=== PATIENT | female | born 1990 | race African-American/Black ===

== ENCOUNTER 2017-09-02 14:09 | Emergency (ER) | payer BC, OTHER ==
[~2017-09-02] VITALS: Ht 165.1 cm; Wt 136.5 kg
[~2017-09-02 14:09] MED LIST: HYDR50TA94 PO; LIND1LOT7 TOP; PRED20 PO; Z.0.NO CURRENT MEDS
[2017-09-02] MEDS ORDERED: IOHEXOL 350 MG/ML 10 ML VIAL (for RAD DIAG) IVCONTRAST ONE (14:10)
[2017-09-02 14:12] VITALS: BP 167/99; PULSE 99; RESP 18; TEMP 99.6; O2SAT 100
[2017-09-02] MEDS ORDERED: SODIUM CHLOR 0.9% 1000 ML INJ 1,000 ML IV SCH (14:58)
[2017-09-02] MEDS ORDERED: DICYCLOMINE HCL 10 MG CAP PO ONE (15:00)
[2017-09-02] MEDS ORDERED: ALUMINUM/MAGNESIUM/SIMETH 30 ML CUP PO ONE (15:00)
[2017-09-02] MEDS ORDERED: LIDOCAINE VISCOUS 2% SOLN 15 ML UDC PO ONE (15:00)
[2017-09-02] MEDS ORDERED: SODIUM CHLORIDE 0.9% FLUSH 10 ML FLUSH IV FLUSH PRN (15:00)
[2017-09-02] MEDS ORDERED: ONDANSETRON HCL 4 MG/2 ML VIAL IVP ONE (15:00)
[2017-09-02] MEDS ORDERED: MORPHINE SULFATE 4 MG/ML INJ IV PUSH ONE (15:00)
[2017-09-02 15:03] VITALS: O2SAT 99
[2017-09-02 15:38] LABS: AUTOMATED NEUTROPHIL # 8.6 TH/MM3 (1.8-7.7); BASOPHIL % 0.3 % (0.0-2.0); EOSINOPHIL # 0.2 TH/MM3 (0-0.4); EOSINOPHIL % 1.8 % (0.0-4.0); HEMATOCRIT 35.8 % (35.0-46.0); HEMOGLOBIN 12.2 GM/DL (11.6-15.3); LYMPH % 9.9 % (9.0-44.0); MEAN CORPUSCULAR HEMOGLOBIN 29.7 PG (27.0-34.0); MEAN CORPUSCULAR HGB CONC 34.2 % (32.0-36.0); MEAN PLATELET VOLUME 8.1 FL (7.0-11.0); MONO % 4.1 % (0.0-8.0); MONOCYTE # 0.4 TH/MM3 (0-0.9); NEUT % 83.9 % (16.0-70.0); PLATELET COUNT 303 TH/MM3 (150-450); RED BLOOD COUNT 4.12 MIL/MM3 (4.00-5.30); RED CELL DISTRIBUTION WIDTH 12.9 % (11.6-17.2); WHITE BLOOD COUNT 10.2 TH/MM3 (4.0-11.0)
[2017-09-02 15:48] LABS: BILIRUBIN, URINE NEG (NEG); BLOOD, URINE LARGE (NEG); GLUCOSE,URINE NEG (NEG); KETONE, URINE NEG (NEG); MUCUS URINE FEW /lpf (OCC); NITRITE,URINE NEG (NEG); PH, URINE 7.5 (5.0-8.5); SQUAMOUS EPITHELIAL CELL URINE 4 /hpf (0-5); URINE COLOR YELLOW (YELLW/STRAW); URINE LEUKOCYTE ESTERASE TRACE (NEG)
[2017-09-02 16:02] LABS: ALBUMIN 3.4 GM/DL (3.4-5.0); ALT (GPT) 20 U/L (10-53); AST (GOT) 10 U/L (15-37); BICARBONATE 26.5 MEQ/L (21.0-32.0); BLOOD UREA NITROGEN 10 MG/DL (7-18); CALCIUM 8.4 MG/DL (8.5-10.1); CHLORIDE 105 MEQ/L (98-107); CREATININE 0.74 MG/DL (0.50-1.00); GLOMERULAR FILTRATION RATE 112 ML/MIN (>89); GLUCOSE,RANDOM 100 MG/DL (74-106); LIPASE 118 U/L (73-393); SODIUM (NA) 138 MEQ/L (136-145)
[2017-09-02 16:04] LABS: ALKALINE PHOSPHATASE 71 U/L (45-117); TOTAL BILIRUBIN ADULT 0.7 MG/DL (0.2-1.0); TOTAL PROTEIN 7.7 GM/DL (6.4-8.2)
--- NOTE | 2017-09-02 16:08 | PD ---
HPI Chief Complaint: Abdominal Pain Time Seen by Provider: 14:50 Travel History International Travel<30 days: No Contact w/Intl Traveler<30days: No Traveled to known affect area: No History of Present Illness HPI 27 yo F c/o abdominal pain for 6 hours, gradual onset, primarily along the RUQ and RLQ which she states feels similar to pain she fell following section. No fever or vomiting. The pain is worse with range of motion of the legs and with changing position of the torso. No abnormal discharge or bleeding. PFSH Past Medical History Hypertension: Yes Immunizations Current: Yes ?: Not LMP: 09/02/16 Past Surgical History Surgical History: No Previous Surgery Social History Alcohol Use: Yes Tobacco Use: No Substance Use: No Allergies-Medications (Allergen,Severity, Reaction): Coded Allergies: No Known Allergies (Verified Allergy, Unknown, 09/02/17) Reported Meds & Prescriptions Reported Meds & Active Scripts Active Review of Systems Except as stated in HPI: all other systems reviewed are Neg General / Constitutional: No: Fever Gastrointestinal: Positive: Abdominal Pain Physical Exam Narrative GENERAL: Well-nourished well-developed 27-year-old female mild distress SKIN: Warm and dry. HEAD: Atraumatic. Normocephalic. EYES: Pupils equal and round. No scleral icterus. No injection or drainage. ENT: No nasal bleeding or discharge. Mucous membranes pink and moist. NECK: Trachea midline. No JVD. CARDIOVASCULAR: Regular rate and rhythm. RESPIRATORY: No accessory muscle use. Clear to auscultation. Breath sounds equal bilaterally. GASTROINTESTINAL: Diffuse TTP right abdomen. Soft. No rebound. MUSCULOSKELETAL: Extremities without clubbing, cyanosis, or edema. No obvious deformities. NEUROLOGICAL: Awake and alert. No obvious cranial nerve deficits. Motor grossly within normal limits. Five out of 5 muscle strength in the arms and legs. Normal speech. PSYCHIATRIC: Appropriate mood and affect; insight and judgment normal. Data Data Last Documented VS Vital Signs Date Time Temp Pulse Resp B/P (MAP) Pulse Ox O2 Delivery O2 Flow Rate FiO2 09/02/17 19:22 88 20 146/72 (96) 98 Room Air 09/02/17 14:12 99.6 Orders Orders Complete Blood Count With Diff (09/02/17 14:58) Comprehensive Metabolic Panel (09/02/17 14:58) Lipase (09/02/17 14:58) Lactic Acid (09/02/17 14:58) Urinalysis - C+S If Indicated (09/02/17 14:58) Ct Abd/Pel W Iv Contrast(Rout) (09/02/17 14:58) Iv Access Insert/Monitor (09/02/17 14:58) Ecg Monitoring (09/02/17 14:58) Oximetry (09/02/17 14:58) Morphine Inj (Morphine Inj) (09/02/17 15:00) Ondansetron Inj (Zofran Inj) (09/02/17 15:00) Sodium Chlor 0.9% 1000 Ml Inj (Ns 1000 M (09/02/17 14:58) Sodium Chloride 0.9% Flush (Ns Flush) (09/02/17 15:00) Dicyclomine (Bentyl) (09/02/17 15:00) Al-Mag Hy-Si 40-40-4 Mg/Ml Liq (Mag-Al P (09/02/17 15:00) Lidocaine 2% Viscous (Xylocaine 2% Visco (09/02/17 15:00) Ed Urine Pregnancytest Poc (09/02/17 14:58) Morphine Inj (Morphine Inj) (09/02/17 16:30) Iohexol 350 Inj (Omnipaque 350 Inj) (09/02/17 14:10) Potassium Chloride (Kcl) (09/02/17 19:15) Ed Discharge Order (09/02/17 19:07) Labs Laboratory Tests Test 09/02/17 15:15 White Blood Count 10.2 TH/MM3 Red Blood Count 4.12 MIL/MM3 Hemoglobin 12.2 GM/DL Hematocrit 35.8 % Mean Corpuscular Volume 87.0 FL Mean Corpuscular Hemoglobin 29.7 PG Mean Corpuscular Hemoglobin Concent 34.2 % Red Cell Distribution Width 12.9 % Platelet Count 303 TH/MM3 Mean Platelet Volume 8.1 FL Neutrophils (%) (Auto) 83.9 % Lymphocytes (%) (Auto) 9.9 % Monocytes (%) (Auto) 4.1 % Eosinophils (%) (Auto) 1.8 % Basophils (%) (Auto) 0.3 % Neutrophils # (Auto) 8.6 TH/MM3 Lymphocytes # (Auto) 1.0 TH/MM3 Monocytes # (Auto) 0.4 TH/MM3 Eosinophils # (Auto) 0.2 TH/MM3 Basophils # (Auto) 0.0 TH/MM3 CBC Comment DIFF FINAL Differential Comment Urine Color YELLOW Urine Turbidity CLEAR Urine pH 7.5 Urine Specific [place] 1.025 Urine Protein 30 mg/dL Urine Glucose (UA) NEG mg/dL Urine Ketones NEG mg/dL Urine Occult Blood LARGE Urine Nitrite NEG Urine Bilirubin NEG Urine Urobilinogen 2.0 MG/DL Urine Leukocyte Esterase TRACE Urine RBC /hpf Urine WBC 1 /hpf Urine Squamous Epithelial Cells 4 /hpf Urine Mucus FEW /lpf Microscopic Urinalysis Comment CULT NOT INDICATED Blood Urea Nitrogen 10 MG/DL Creatinine 0.74 MG/DL Random Glucose 100 MG/DL Total Protein 7.7 GM/DL Albumin 3.4 GM/DL Calcium Level 8.4 MG/DL Alkaline Phosphatase 71 U/L Aspartate Amino Transf (AST/SGOT) 10 U/L Alanine Aminotransferase (ALT/SGPT) 20 U/L Total Bilirubin 0.7 MG/DL Sodium Level 138 MEQ/L Potassium Level 3.4 MEQ/L Chloride Level 105 MEQ/L Carbon Dioxide Level 26.5 MEQ/L Anion Gap 7 MEQ/L Estimat Glomerular Filtration Rate 112 ML/MIN Lactic Acid Level 1.3 mmol/L Lipase 118 U/L [facility] Medical Decision Making Medical Screen Exam Complete: Yes Emergency Medical Condition: Yes Medical Record Reviewed: Yes Differential Diagnosis Gastritis, pancreatitis, appendicitis, acute cholecystitis, ascending cholangitis, AAA, perforated viscous, mesenteric ischemia, hepatitis, cystitis, hydronephrosis/hydroureter/nephroureter calculus, mesenteric adenitis, biliary colic Narrative Course CBC & BMP Diagram 09/02/17 15:15 Total Protein 7.7, Albumin 3.4, Calcium Level 8.4 L, Alkaline Phosphatase 71, Aspartate Amino Transf (AST/SGOT) 10 L, Alanine Aminotransferase (ALT/SGPT) 20, Total Bilirubin 0.7 Lipase 118 Lactic acid 1.3 Case d/w oncoming provider Follow up with CT for Gabriel Rehman MD Sep 02, 2017 16:08
[2017-09-02] MEDS ORDERED: MORPHINE SULFATE 2 MG/ML INJ IV PUSH ONE (16:30)
--- NOTE | 2017-09-02 17:35 | RADRPT ---
EXAM DATE/TIME: 09/02/2017 16:58 [place] COMPARISON: No previous studies available for comparison. INDICATIONS : Right lower qaudrant pain. IV CONTRAST: 95 cc Omnipaque 350 (iohexol) IV ORAL CONTRAST: No oral contrast ingested. RADIATION DOSE: 27.95 CTDIvol (mGy) ; Patient body habitus MEDICAL HISTORY : Hypertension. SURGICAL HISTORY : None. ENCOUNTER: Initial ACUITY: 1 day PAIN SCALE: 7/10 LOCATION: Right lower quadrant TECHNIQUE: Volumetric scanning of the abdomen and pelvis was performed. Using automated exposure control and ad justment of the mA and/or kV according to patient size, radiation dose was kept as low as reasonably achievable to obtain optimal diagnostic quality images. DICOM format image data is available electro nically for review and comparison. FINDINGS: CT Abdomen: The liver, spleen, pancreas, kidneys, adrenals are unremarkable. There is no evidence for any appreciable pathological adenopathy, free fluid, or bowel obstruction. Shotty retroperitoneal l ymph nodes are present benign in appearance. CT pelvis: There is no evidence for mass, abscess formation, or any significant adenopathy within the pelvis. There is slight fat herniation underneath the umbilicus without evidence for bowel herniatio n. The appendix appears intact without definite signs of appendicitis. CONCLUSION: Essentially unremarkable study. Danny Albert MD on September 02, 2017 at 17:29 Board Certified Radiologist. This report was verified electronically.
--- NOTE | 2017-09-02 19:07 | PD ---
Physical Exam Date Seen by Provider: Sep 02, 2017 Data Data Last Documented VS Vital Signs Date Time Temp Pulse Resp B/P (MAP) Pulse Ox O2 Delivery O2 Flow Rate FiO2 09/02/17 15:03 99 Room Air 09/02/17 14:12 99.6 99 18 Orders Orders Complete Blood Count With Diff (09/02/17 14:58) Comprehensive Metabolic Panel (09/02/17 14:58) Lipase (09/02/17 14:58) Lactic Acid (09/02/17 14:58) Urinalysis - C+S If Indicated (09/02/17 14:58) Ct Abd/Pel W Iv Contrast(Rout) (09/02/17 14:58) Iv Access Insert/Monitor (09/02/17 14:58) Ecg Monitoring (09/02/17 14:58) Oximetry (09/02/17 14:58) Morphine Inj (Morphine Inj) (09/02/17 15:00) Ondansetron Inj (Zofran Inj) (09/02/17 15:00) Sodium Chlor 0.9% 1000 Ml Inj (Ns 1000 M (09/02/17 14:58) Sodium Chloride 0.9% Flush (Ns Flush) (09/02/17 15:00) Dicyclomine (Bentyl) (09/02/17 15:00) Al-Mag Hy-Si 40-40-4 Mg/Ml Liq (Mag-Al P (09/02/17 15:00) Lidocaine 2% Viscous (Xylocaine 2% Visco (09/02/17 15:00) Ed Urine Pregnancytest Poc (09/02/17 14:58) Morphine Inj (Morphine Inj) (09/02/17 16:30) Iohexol 350 Inj (Omnipaque 350 Inj) (09/02/17 14:10) Labs Laboratory Tests Test 09/02/17 15:15 White Blood Count 10.2 TH/MM3 Red Blood Count 4.12 MIL/MM3 Hemoglobin 12.2 GM/DL Hematocrit 35.8 % Mean Corpuscular Volume 87.0 FL Mean Corpuscular Hemoglobin 29.7 PG Mean Corpuscular Hemoglobin Concent 34.2 % Red Cell Distribution Width 12.9 % Platelet Count 303 TH/MM3 Mean Platelet Volume 8.1 FL Neutrophils (%) (Auto) 83.9 % Lymphocytes (%) (Auto) 9.9 % Monocytes (%) (Auto) 4.1 % Eosinophils (%) (Auto) 1.8 % Basophils (%) (Auto) 0.3 % Neutrophils # (Auto) 8.6 TH/MM3 Lymphocytes # (Auto) 1.0 TH/MM3 Monocytes # (Auto) 0.4 TH/MM3 Eosinophils # (Auto) 0.2 TH/MM3 Basophils # (Auto) 0.0 TH/MM3 CBC Comment DIFF FINAL Differential Comment Urine Color YELLOW Urine Turbidity CLEAR Urine pH 7.5 Urine Specific [place] 1.025 Urine Protein 30 mg/dL Urine Glucose (UA) NEG mg/dL Urine Ketones NEG mg/dL Urine Occult Blood LARGE Urine Nitrite NEG Urine Bilirubin NEG Urine Urobilinogen 2.0 MG/DL Urine Leukocyte Esterase TRACE Urine RBC /hpf Urine WBC 1 /hpf Urine Squamous Epithelial Cells 4 /hpf Urine Mucus FEW /lpf Microscopic Urinalysis Comment CULT NOT INDICATED Blood Urea Nitrogen 10 MG/DL Creatinine 0.74 MG/DL Random Glucose 100 MG/DL Total Protein 7.7 GM/DL Albumin 3.4 GM/DL Calcium Level 8.4 MG/DL Alkaline Phosphatase 71 U/L Aspartate Amino Transf (AST/SGOT) 10 U/L Alanine Aminotransferase (ALT/SGPT) 20 U/L Total Bilirubin 0.7 MG/DL Sodium Level 138 MEQ/L Potassium Level 3.4 MEQ/L Chloride Level 105 MEQ/L Carbon Dioxide Level 26.5 MEQ/L Anion Gap 7 MEQ/L Estimat Glomerular Filtration Rate 112 ML/MIN Lactic Acid Level 1.3 mmol/L Lipase 118 U/L [facility] Medical Record Reviewed: Yes Supervised Visit with VALDO: No Interpretation(s) Vital Signs Date Time Temp Pulse Resp B/P (MAP) Pulse Ox O2 Delivery O2 Flow Rate FiO2 09/02/17 15:03 99 Room Air 09/02/17 14:12 99.6 99 18 167/99 (121) 100 Laboratory Tests Test 09/02/17 15:15 White Blood Count 10.2 TH/MM3 (4.0-11.0) Red Blood Count 4.12 MIL/MM3 (4.00-5.30) Hemoglobin 12.2 GM/DL (11.6-15.3) Hematocrit 35.8 % (35.0-46.0) Mean Corpuscular Volume 87.0 FL (80.0-100.0) Mean Corpuscular Hemoglobin 29.7 PG (27.0-34.0) Mean Corpuscular Hemoglobin Concent 34.2 % (32.0-36.0) Red Cell Distribution Width 12.9 % (11.6-17.2) Platelet Count 303 TH/MM3 (150-450) Mean Platelet Volume 8.1 FL (7.0-11.0) Neutrophils (%) (Auto) 83.9 % (16.0-70.0) Lymphocytes (%) (Auto) 9.9 % (9.0-44.0) Monocytes (%) (Auto) 4.1 % (0.0-8.0) Eosinophils (%) (Auto) 1.8 % (0.0-4.0) Basophils (%) (Auto) 0.3 % (0.0-2.0) Neutrophils # (Auto) 8.6 TH/MM3 (1.8-7.7) Lymphocytes # (Auto) 1.0 TH/MM3 (1.0-4.8) Monocytes # (Auto) 0.4 TH/MM3 (0-0.9) Eosinophils # (Auto) 0.2 TH/MM3 (0-0.4) Basophils # (Auto) 0.0 TH/MM3 (0-0.2) CBC Comment DIFF FINAL Differential Comment Urine Color YELLOW (YELLW/STRAW) Urine Turbidity CLEAR (CLEAR) Urine pH 7.5 (5.0-8.5) Urine Specific [place] 1.025 (1.002-1.035) Urine Protein 30 mg/dL (NEG-TRACE) Urine Glucose (UA) NEG mg/dL (NEG) Urine Ketones NEG mg/dL (NEG) Urine Occult Blood LARGE (NEG) Urine Nitrite NEG (NEG) Urine Bilirubin NEG (NEG) Urine Urobilinogen 2.0 MG/DL (LESS THAN Urine Leukocyte Esterase TRACE (NEG) Urine RBC /hpf (0-3) Urine WBC 1 /hpf (0-5) Urine Squamous Epithelial Cells 4 /hpf (0-5) Urine Mucus FEW /lpf (OCC) Microscopic Urinalysis Comment CULT NOT INDICATED Blood Urea Nitrogen 10 MG/DL (7-18) Creatinine 0.74 MG/DL (0.50-1.00) Random Glucose 100 MG/DL (74-106) Total Protein 7.7 GM/DL (6.4-8.2) Albumin 3.4 GM/DL (3.4-5.0) Calcium Level 8.4 MG/DL (8.5-10.1) Alkaline Phosphatase 71 U/L (45-117) Aspartate Amino Transf (AST/SGOT) 10 U/L (15-37) Alanine Aminotransferase (ALT/SGPT) 20 U/L (10-53) Total Bilirubin 0.7 MG/DL (0.2-1.0) Sodium Level 138 MEQ/L (136-145) Potassium Level 3.4 MEQ/L (3.5-5.1) Chloride Level 105 MEQ/L (98-107) Carbon Dioxide Level 26.5 MEQ/L (21.0-32.0) Anion Gap 7 MEQ/L (5-15) Estimat Glomerular Filtration Rate 112 ML/MIN (>89) Lactic Acid Level 1.3 mmol/L (0.4-2.0) Lipase 118 U/L (73-393) Last Impressions Abdomen/Pelvis CT 09/02/17 [id number] Signed Impressions: Service Date/Time: Saturday, September 02, 2017 16:58 - CONCLUSION: Essentially unremarkable study. Danny Albert MD Differential Diagnosis Gastroenteritis, appendicitis, acute cholecystitis, uti, calculus Narrative Course Patient was sent out to me by Dr. Cotton at change of shift. Patient pending CT the abdomen and pelvis and ultimate disposition of patient. Patient is a 27-year-old female who presents to emergency room with complaints of abdominal pain which began this morning. That pain is predominantly to her right abdomen. Patient with no fever or chills, denies any nausea or vomiting, denies any constipation or diarrhea. Upon arrival to the emergency room, patient had lab work drawn. She was given morphine for pain as well as Zofran for nausea along with Bentyl, GI cocktail and IV fluids. CBC & BMP Diagram 09/02/17 15:15 Total Protein 7.7, Albumin 3.4, Calcium Level 8.4 L, Alkaline Phosphatase 71, Aspartate Amino Transf (AST/SGOT) 10 L, Alanine Aminotransferase (ALT/SGPT) 20, Total Bilirubin 0.7 cbc: wnl bmp: Sodium 138, potassium 3.4, bun 10, cr 0.74, lfts wnl lactate 1.3 UA: large blood, trace leuk esterase, few mucous Last Impressions Abdomen/Pelvis CT 09/02/17 1458 Signed Impressions: Service Date/Time: Saturday, September 02, 2017 16:58 - CONCLUSION: Essentially unremarkable study. Danny Albert MD CT the abdomen pelvis with an essentially unremarkable exam. Patient re-evaluated, patient with pain to right abdomen. I offered patient a pelvic exam to rule out pelvic pathology for abdominal pain. Patient refuses pelvic exam. Patient request to be discharged to home at this time. I reviewed with patient signs and symptoms of an acute abdomen - she will return to ER as needed. A copy of her studies were given to her at discharge. Patient will follow up with pcp or return to ER in 48 hours for re-evaluation. If she develops any acute symptoms, she was instructed to return directly to the ER Diagnosis Primary Impression: Abdominal pain Qualified Codes: R10.9 - Unspecified abdominal pain Additional Impression: Hypokalemia Patient Instructions: General Instructions Additional Instruction: Please provide patient with a copy of their lab work and studies at discharge* * Please follow up with your primary care doctor or return to the emergency room in 48 hours for re-evaluation of your symptoms Return to the ER if symptoms worsen or progress or if you develop fever/chills Return to the ER as needed Disposition: 01 DISCHARGE HOME Condition: Stable Radha Azar DO Sep 02, 2017 19:06
[2017-09-02] MEDS ORDERED: POTASSIUM CHLORIDE 10 MEQ CONTROLLED RELEASE TAB PO ONE (19:15)
[2017-09-02 19:22] VITALS: BP 146/72; PULSE 88; RESP 20; O2SAT 98
== END 2017-09-02 19:23 | disposition home or self-care (01) ==
LOC: NEPD 14:09
DX: R10.31 Right lower quadrant pain (principal); R10.11 Right upper quadrant pain; E87.6 Hypokalemia; I10 Essential (primary) hypertension
CPT/HCPCS: 74177; 80053; 81001; 83605; 83690; 84703; 85025; 96361; 96374; 96375; 99285; J2270; J2405; J7030; Q9967